=== PATIENT | male | born 1985 | race Caucasian/White ===

== ENCOUNTER → 2018-04-16 | Emergency (ER) | payer OTHER ==
[2018-04-16 23:35] LABS: HIV 1/2 Antibodies Non-Reactive; HIV-1p24 Antigen Non-Reactive
[2018-04-17 13:33] LABS: HEPATITIS B SURFACE ANTIGEN Negative (Negative); HEPATITIS C VIRUS ANTIBODY Negative (Negative)
== END ==
LOC: COL.ER 22:56
PROVIDERS: Emergency Medicine
DX: Z72.89 Other problems related to lifestyle (principal)

== ENCOUNTER → 2020-03-31 | Outpatient (CLI) | payer OTHER ==
[~2020-03-31] VITALS: Ht 182.9 cm; Wt 86.4 kg
[2020-03-31 08:10] VITALS: BP 147/105; PULSE 74; TEMP 98.4
[2020-03-31 09:18] LABS: HIV 1/2 Antibodies Non-Reactive; HIV-1p24 Antigen Non-Reactive
[2020-03-31 17:40] LABS: HEPATITIS B SURFACE ANTIGEN Negative (Negative); HEPATITIS C VIRUS ANTIBODY Negative (Negative)
== END ==
LOC: COL.ER 07:34 → COL.EMP 07:34 → EDSTATUS 14:09
PROVIDERS: Emergency Medicine
DX: S60.414A Abrasion of right ring finger, initial encounter (principal); W26.8XXA Contact with other sharp object(s), not elsewhere classified, initial encounter

== ENCOUNTER → 2020-04-25 | Outpatient (CLI) | payer OTHER | LOC: ZCOL.LAB 22:53 | DX: Z20.828 Contact with and (suspected) exposure to other viral communicable diseases (principal) ==